=== PATIENT | male | born 1985 | race Caucasian/White ===

== ENCOUNTER 2020-04-03 02:00 | Emergency (ER) | payer OTHER ==
[~2020-04-03] VITALS: Ht 188 cm; Wt 131.5 kg
[2020-04-03 02:25] LABS: ABSOLUTE NEUTROPHILS 2.2 thou/uL (1.4-8.2); BASOPHILS 0.5 % (0.0-2.0); HEMOGLOBIN 15.3 gm/dL (14.0-18.0)
[2020-04-03 02:26] LABS: EOSINOPHILS 2.5 % (0.0-3.0); HEMATOCRIT 45.2 % (42.0-52.0); LYMPHOCYTES 28.8 % (24.0-44.0); MCH 29.2 pg (26.0-34.0); MCHC 33.8 g/dL (28.0-37.0); MCV 86.3 fL (80.0-100.0); MONOCYTES 7.6 % (1.0-8.0); PLATELET COUNT 42 thou/uL (150-400); POLYS 60.6 % (36.0-66.0); RBC 5.24 mil/uL (4.50-6.00); RDW 13.9 % (10.5-14.5); WBC 3.6 thou/uL (4.0-11.0)
[2020-04-03 02:36] LABS: ANION GAP 7 mmol/L (7-16); BUN 15 mg/dL (7-18); CALCIUM 8.7 mg/dL (8.5-10.1); CHLORIDE 101 mmol/L (98-107); CO2 30 mmol/L (21-32); CREATININE 1.1 mg/dL (0.7-1.3); GLUCOSE 191 mg/dL (74-106); POTASSIUM 3.5 mmol/L (3.5-5.1); SODIUM 138 mmol/L (136-145)
[2020-04-03 02:46] LABS: ALBUMIN 3.8 g/dL (3.4-5.0); LIPASE 229 U/L (73-393); SGOT 59 U/L (15-37); SGPT 76 U/L (30-65); TOTAL BILIRUBIN 0.7 mg/dL (0.2-1.0); TOTAL PROTEIN 7.7 g/dL (6.4-8.2); TROPONIN-I <0.06 ng/mL (<0.06)
[2020-04-03 03:31] LABS: URINE BILIRUBIN NEGATIVE (Negative); URINE BLOOD NEGATIVE (Negative); URINE CLARITY CLEAR; URINE COLOR YELLOW; URINE GLUCOSE-RANDOM* TRACE (Negative); URINE KETONES NEGATIVE (Negative); URINE LEUKOCYTES-REFLEX NEGATIVE (Negative); URINE NITRITE-REFLEX NEGATIVE (Negative); URINE PROTEIN (DIPSTICK) NEGATIVE (Negative); URINE UROBILINOGEN 0.2 E.U./dl (0.2-1.0)
[2020-04-03] MEDS ORDERED: NORCO 5-325 TA1 EAC2 PO (04:25)
[2020-04-03] MEDS ORDERED: ONDANSETRON ODT8 MG PO (04:25)
[2020-04-03 04:42] VITALS: BP 119/73
--- NOTE | 2020-04-03 14:31 | EKG ---
[facility] [address] [place] [address] ELECTROCARDIOGRAM REPORT Name: LUCILA DAWKINS Room #: [facility] IVANA Burger#: [id number] Admission: 04/03/20 Attend Phys: Discharge: 04/03/20 Date of : 83 Report #: [id number] THIS REPORT FOR: cc: NO FAMILY PHYSICIAN or PCP NO FAMILY PHYSICIAN or PCP Duane Lozoya MD ~ <ELECTRONICALLY SIGNED> By: Duane Lozoya MD 04/03/20 1430 0 0 Duane Lozoya MD /EPI
== END 2020-04-03 04:43 | disposition home or self-care (01) ==
LOC: ER 02:00
PROVIDERS: Emergency Medicine
DX: K74.69 Other cirrhosis of liver (principal); B19.10 Unspecified viral hepatitis B without hepatic coma; R16.1 Splenomegaly, not elsewhere classified; D69.6 Thrombocytopenia, unspecified; Z90.49 Acquired absence of other specified parts of digestive tract